=== PATIENT | male | born 1985 | race Caucasian/White ===

== ENCOUNTER 2023-11-11 22:46 | Emergency (ER) | payer SELFPAY ==
[2023-11-11 22:52] VITALS: BP 120/71; PULSE 62; RESP 19; TEMP 98.6; BMI 32.3
[2023-11-12] MEDS ORDERED: KETOROLAC TROMETHAMINE 15 MG/ML VIAL ONE (00:54)
[2023-11-12] MEDS ORDERED: ACETAMINOPHEN INJECTION 100 ML IVPB ONE (00:54)
[2023-11-12] MEDS ORDERED: ONDANSETRON *ODT* 4 MG TABLET ONE (00:54)
[2023-11-12] MEDS: ACETAMINOPHEN 1000 MG/100 ML BAG IVPB ONE (01:08)
[2023-11-12] MEDS: ONDANSETRON 4 MG TABLET PO ONE (01:08)
[2023-11-12] MEDS: SODIUM CHLORIDE 1,000 ML IV STA (01:09)
[2023-11-12] MEDS: KETOROLAC TROMETHAMINE 15 MG/ML VIAL IVPUSH ONE (01:09)
[2023-11-12 01:37] LABS: BASO % 0.6 % (0-2.0); EOS % 1.3 % (0-4.5); HEMATOCRIT 42.6 % (35.4-49); HEMOGLOBIN 14.7 GM/dL (11.7-16.9); LYMPH % 31.4 % (8-40); MCH 30.4 pg (25.7-33.7); MCHC 34.5 g/dl (32.0-35.9); MEAN CELL VOLUME 88.1 fl (80-96); MONO % 6.9 % (3.8-10.2); NEUT % 59.8 % (42.8-82.8); PLATELET COUNT 205 10^3/uL (134-434); RBC 4.84 M/mm3 (4.00-5.60); RDW 12.9 % (11.9-15.9); WHITE BLOOD COUNT 7.3 K/mm3 (4.0-10.0)
[2023-11-12 01:41] LABS: EPI CELLS 3 /uL (0-25.1); HYALINE CASTS 0 /uL (0-3.1); URINE APPEARANCE CLEAR; URINE BACTERIA 6 /uL (0-1359); URINE BILIRUBIN NEGATIVE (NEGATIVE); URINE COLOR YELLOW; URINE GLUCOSE (UA) NEGATIVE (NEGATIVE); URINE KETONE NEGATIVE (NEGATIVE); URINE LEUK ESTERASE NEGATIVE (NEGATIVE); URINE NITRITE NEGATIVE (NEGATIVE); URINE PROTEIN NEGATIVE (NEGATIVE); URINE RBC 1128 /uL (0-23.9); URINE WBC 10 /uL (0-25.8)
[2023-11-12 01:58] LABS: CALCIUM 8.6 mg/dL (8.5-10.1)
[2023-11-12 01:59] LABS: BLOOD UREA NITROGEN 22.6 mg/dL (7-18); MAGNESIUM 2.4 mg/dL (1.8-2.4)
[2023-11-12 02:02] LABS: CREATININE 0.9 mg/dL (0.55-1.3); PHOSPHOROUS 4.1 mg/dL (2.5-4.9)
[2023-11-12 02:03] LABS: BILIRUBIN,TOTAL 0.8 mg/dL (0.2-1); TOT PROT 6.8 g/dl (6.4-8.2)
[2023-11-12 02:55] LABS: HIV INTERPRETATION NEGATIVE (NEGATIVE)
== END 2023-11-12 04:45 | disposition home or self-care (01) ==
LOC: JER 22:46
DX: N13.2 Hydronephrosis with renal and ureteral calculous obstruction (principal); R11.10 Vomiting, unspecified; R10.9 Unspecified abdominal pain
CPT/HCPCS: 36415; 74176-TC; 80053; 81003; 83735; 84100; 85025; 86803; 87389; 99284-25; J0131